=== PATIENT | female | born 2000 | race Caucasian/White ===

== ENCOUNTER 2023-02-18 10:15 | Emergency (ER) | payer OTHER, SELFPAY ==
[2023-02-18 10:17] VITALS: BP 116/85; PULSE 123; RESP 18; TEMP 37.1; O2SAT 98
[2023-02-18 10:48] LABS: Appearance Urine Cloudy (Clear); Bilirubin Urine Negative (Negative); Blood Urine Negative (Negative); Color Urine Yellow (Yellow); Glucose Urine UA Negative (Negative); Ketones Urine Trace mg/dL (Negative); Leukocyte Esterase Ur 2+ LEU/UL (Negative); Nitrate Urine Negative (Negative); Protein Urine Trace mg/dL (Negative); Specific Grav Ur 1.029 (1.001-1.035); pH Urine 7.5 (5.0-9.0)
[2023-02-18 11:07] LABS: Bacteria Urine 1+ /hpf; RBC Urine 0-2 /hpf (0-2); Squamous Epithelial Cell Urine Many /hpf (Few)
[2023-02-18 11:08] LABS: Add Urine Microscopic? YES
[2023-02-18 11:41] LABS: Hematocrit 42.7 % (37.0-47.0); Hemoglobin 14.5 g/dL (12.0-15.0); Mean Corpuscular Hemoglobin 29.9 pg (26-34); Mean Platelet Volume 10.5 fl (7.4-10.4); Platelet Count Result 263 k/mm3 (150-375); Red Blood Count 4.85 M/mm3 (4.2-5.4); Red Cell Distribution Width 12.1 % (11.5-14.5); White Blood Count 9.4 K/mm3 (4.5-10.0)
[2023-02-18 11:48] LABS: Alanine Aminotransferase 33 U/L (6-35); Albumin Level 4.7 g/dL (3.5-5.1); Alkaline Phosphatase 67 U/L (38-126); Anion Gap 9 mmol/L (8-16); Aspartate Amino Transferase 31 U/L (14-36); Bilirubin,Total 0.7 mg/dL (0.2-1.3); Blood Urea Nitrogen 16 mg/dL (7-17); Calcium 9.2 mg/dL (8.4-10.2); Carbon Dioxide 26 mmol/L (22-30); Chloride 102 mmol/L (98-107); Estimated CRCL calculation 99 ml/min; Estimated Glomerular Filt Rate > 60; Glucose 139 mg/dL (65-110); Lipase 39 U/L (23-300); Sodium 137 mmol/L (137-145)
[2023-02-18 12:12] VITALS: BP 118/68; PULSE 74; RESP 16; O2SAT 100
[2023-02-18 12:13] LABS: Band Neutrophils Percent 10 % (0-6); Lymphocytes Absolute Manual 0.18 K/mm3 (1.1-4.5); Lymphocytes Percent Manual 2 % (18-44); Monocytes Absolute Manual 0.28 K/mm3 (0.1-0.90); Monocytes Percent Manual 3 % (3-9); Neutrophils Absolute Manual 8.93 K/mm3 (1.7-7.2); Neutrophils Percent Manual 85 % (46-73); Platelet Estimate Adequate (Adequate); Schistocytes None Seen (NORMAL); Total Cells Counted 100
--- NOTE | 2023-02-18 12:33 | ED.GENADULT ---
HPI - General Adult General Chief complaint: Nausea/Vomiting/Diarrhea Stated complaint: n/v Time Seen by Provider: 02/18/23 11:49 History of Present Illness HPI narrative: 22-year-old female presented the ED for evaluation of nausea vomiting that started last night and persisted through approximately 9 AM this morning. Patient states that she believes only reason her emesis is stopped because she has not had anything to eat or drink. Patient denies any abdominal pain any pain with urination denies any associated diarrhea. Patient denies any current . Patient denies any significant past medical history. Related Data Allergies Allergy/AdvReac Type Severity Reaction Status Date / Time Penicillins Allergy Intermediate Rash Verified 02/18/23 10:20 Review of Systems Review of Systems: All systems reviewed & are unremarkable except as noted in HPI and below PMFSH Past Medical History Medical History Dysmenorrhea Family History Family History Grandparent Carcinoma of colon Ovarian cancer Social History Social History Smoking status: Never smoker Alcohol intake: never Substance use: never Substance use type: does not use Living arrangements: with family Additional occupation/education comments: Workers at [employer] Gender identity (if verbalized by the patient): Female Sexual Orientation (if Verbalized by the Patient): Straight or Heterosexual Spiritual care concerns: No Exam Narrative: APPEARANCE: Well appearing, no pain, no distress, well-nourished. HEAD: normocephalic, atraumatic. EYES: PERRLA/EOMI, conjunctivae clear. NOSE: Normal no drainage NECK: Supple. No adenopathy, no masses. RESPIRATORY: Airway patent, respirations nonlabored. Clear to auscultation bilaterally, no rales, rhonchi, wheezing. CARDIOVASCULAR: Regular rate and rhythm without murmurs rubs or gallops. ABDOMINAL: Soft, nontender, nondistended, normal bowel sounds MUSCULOSKELETAL: Moves all extremities. Strength/ROM intact, No edema, No calf tenderness. NEURO: Alert. Cranial nerves II through XII intact. Grossly intact SKIN: Warm, dry. Normal Color Course Course Emergency Course: 22-year-old female presented the ED for evaluation of persistent nausea and vomiting. Patient had no further emesis in the emergency department. Patient was afebrile with no leukocytosis. Patient's hemoglobin was 14.5. Patient's CMP had no significant abnormalities. UA showed no evidence of urinary tract infection. Patient did feel improved with treatment. Patient was treated with IV fluids and IV Zofran. Patient was updated on the results of her work-up and was encouraged to follow a clear liquid diet for the next few days. Patient was provided p.o. Zofran for nausea control. All questions and concerns were addressed and patient was comfortable with the plan for discharge and close follow-up. Vital Signs Vital signs: Vital Signs Temperature 98.8 F 02/18/23 10:17 Pulse Rate 123 H 02/18/23 10:17 Respiratory Rate 18 02/18/23 10:17 Blood Pressure 116/85 02/18/23 10:17 Pulse Oximetry 98 02/18/23 10:17 Oxygen Delivery Room Air 02/18/23 10:17 Temperature 98.0 F 02/18/23 14:28 Pulse Rate 104 H 02/18/23 14:03 Respiratory Rate 16 02/18/23 14:03 Blood Pressure 104/64 02/18/23 14:03 Pulse Oximetry 98 02/18/23 14:03 Oxygen Delivery Room Air 02/18/23 10:17 Medical Decision Making Differential Diagnosis Differential Diagnosis: Nausea and vomiting, gastroenteritis, urinary tract infection, food poisoning Vital Signs Vital Signs: Vital Signs Temperature 98.8 F 02/18/23 10:17 Pulse Rate 123 H 02/18/23 10:17 Respiratory Rate 18 02/18/23 10:17 Blood Pressure 116/85 02/18/23 10:17 Pulse Oximetry 98 02/18/23 10:17 Oxygen De
[2023-02-18] MEDS: ONDANSETRON INJ 4 MG/2 ML VIAL IV PUSH ×2 (12:40→14:22)
[2023-02-18] MEDS: SODIUM CHLORIDE 0.9% IV 1,000 ML 999 ML IV CONT (12:40)
[2023-02-18 13:00] VITALS: BP 106/78; PULSE 100; RESP 16; O2SAT 100
[2023-02-18 14:03] VITALS: BP 104/64; PULSE 104; RESP 16; O2SAT 98
[2023-02-18 14:28] VITALS: TEMP 36.7
== END 2023-02-18 14:30 | disposition home or self-care (01) ==
PROVIDERS: Emergency Provider Emergency Medicine; PCP Pediatrics
DX: R11.2 Nausea with vomiting, unspecified (principal)
CPT/HCPCS: 36415; 80053; 81001; 81025; 83690; 85025; 96361; 96365; 96375; 96376; 99284; J0131; J2405; J7030

== ENCOUNTER 2023-06-11 14:46 | Outpatient (CLI) | payer OTHER, SELFPAY ==
[2023-06-11 18:56] LABS: Free T4 Free Thyroxine Reflex 1.15 ng/dL (0.78-2.19)
[2023-06-11 19:51] LABS: Total Triiodothyronine (T3) 1.92 NG/ML (0.97-1.69)
[2023-06-17 02:05] LABS: Immunoglobulin A 181 mg/dL (47-310); TTG IGA AB <1.0 U/mL (<15.0)
== END 2023-06-11 14:47 | disposition home or self-care (01) ==
PROVIDERS: PCP Pediatrics; Visit Provider Nurse Practitioner
DX: R11.0 Nausea (principal); R10.13 Epigastric pain; K90.49 Malabsorption due to intolerance, not elsewhere classified
CPT/HCPCS: 36415; 82784; 84439; 84443; 84480; 86003; 86364

== ENCOUNTER 2023-06-22 00:54 | Day surgery (SDC) | payer OTHER, SELFPAY ==
[2023-06-22 11:54] VITALS: BP 115/83; PULSE 78; RESP 18; TEMP 36.6; O2SAT 100
[2023-06-22] MEDS: LACTATED RINGERS 1,000 ML 150 ML IV CONT (12:01)
--- NOTE | 2023-06-22 12:13 | P.PNAN_ITS ---
Anes - Initial Pre Proc Eval Procedure: Operation Date: 06/22/23 13:00 Proposed Procedures p Esophagogastroduodenoscopy - Brendan Arita MD Date/Time: 06/22/23 12:13 Surgeon: Brendan Arita MD Pre Op Diagnosis: Malabsorption due to intolerance, nausea, Patient Data Age: 22 Gender: F Height: 1.65 m Weight: 54.6 kg Last Vital Signs Temp 97.9 F 06/22/23 11:54 Pulse 78 06/22/23 11:54 Resp 18 06/22/23 11:54 BP 115/83 06/22/23 11:54 Pulse Ox 100 06/22/23 11:54 O2 Del Method Room Air 06/22/23 11:54 Allergies Allergy/AdvReac Type Severity Reaction Status Date / Time Penicillins Allergy Intermediate Rash Verified 06/22/23 11:52 Home Medications Medication Instructions Recorded Confirmed Type norethindrone 1.5 mg-ethinyl 1 tablet PO DAILY #84 tabs 02/10/23 06/15/23 Rx estradiol 30 mcg(21)/iron 75 mg(7) tablet (Junel FE 1.5/30 (28)) multivitamin 1 tablet PO DAILY 06/11/23 06/15/23 History omeprazole 20 mg capsule,delayed 20 mg PO DAILY #30 caps 06/11/23 06/15/23 Rx release Elderberry 50 mg PO DAILY 06/15/23 06/15/23 History ondansetron HCl 8 mg tablet 8 mg PO Q6-8H PRN Nausea And 06/15/23 06/15/23 History Vomiting Patient hx anesthesia problems: none Family hx anesthesia problems: none Results Review: All pre-operative results and documents have been reviewed as part of the pre- operative evaluation. [facility] Past Medical History Medical History (Updated 06/11/23 @ 14:40 by Krysten Rodriguez APRN) Abnormal weight loss Dysmenorrhea Early satiety Epigastric pain Intolerance, food Nausea Family History Family History Grandparent Carcinoma of colon Ovarian cancer Social History Social History Smoking status: Never smoker Alcohol intake: never Substance use: never Substance use type: does not use Living arrangements: with family Additional occupation/education comments: Workers [facility] [employer] Gender identity (if verbalized by the patient): Female Sexual Orientation (if Verbalized by the Patient): Straight or Heterosexual Spiritual care concerns: No Anes - Eval Final PreProcedure Day of Procedure 06/22/23 12:13 Patient weight: normal Heart: regular rate and rhythm Lungs: clear to auscultation Airway: Mallampati scale class II Neurological: alert and oriented Last oral intake: >/= 8 hours ASA classification: II Emergent: no Anesthetic plan: proceed Anesthesia type and monitoring: general GIVS and standard monitoring Results Review: All pre-operative results and documents have been reviewed as part of the pre- operative evaluation. Informed Consent: The patient's anesthetic plan and its attendant risks and benefits were discussed with the patient/family/POA. Questions were solicited and answers provided to the satisfaction of the patient/family/POA.
--- NOTE | 2023-06-22 12:24 | WPDHPUPDATE1 ---
History and Physical Update Update Date/Time: 06/22/23 12:24 History and Physical has been reviewed, including an updated exam of the patient. There are NO changes in the patient's condition. Risks, benefits, and alternatives have been discussed and questions answered. Patient agrees to proceed with procedure.
[2023-06-22 12:37] VITALS: BP 110/48; PULSE 83; RESP 20; O2SAT 100
[2023-06-22 12:47] VITALS: BP 111/70; PULSE 68; RESP 20; O2SAT 98
[2023-06-22 12:57] VITALS: BP 121/89; PULSE 72; RESP 20; O2SAT 99
== END 2023-06-22 13:03 | disposition home or self-care (01) ==
PROVIDERS: PCP Pediatrics; Visit Provider Internal Medicine Gastroenterology
PROC: 0DJ08ZZ Inspection of Upper Intestinal Tract, Via Natural or Artificial Opening Endoscopic (ICD-10-PCS; CPT 43235; principal; 2023-06-22 13:00)
DX: R11.0 Nausea (principal)
CPT/HCPCS: 43239; 88305; J2704; J7120

== ENCOUNTER 2023-11-27 14:42 | Outpatient (CLI) | payer OTHER, SELFPAY ==
[2023-11-27 16:02] LABS: Total Triiodothyronine (T3) 2.16 NG/ML (0.97-1.69)
[2023-11-27 16:32] LABS: Free T4 Free Thyroxine 0.95 ng/mL (0.78-2.19)
[2023-12-01 14:42] LABS: Thyroid Stimulating Immunoglob 117 % baseline (<140)
[2023-12-02 10:14] LABS: Thyrotropin Receptor Antibody 1.73 IU/L (<=2.00)
[2023-12-04 01:25] LABS: Thyroid Peroxidase Antibodies 88 IU/mL (<9)
== END 2023-11-27 14:43 | disposition home or self-care (01) ==
PROVIDERS: Visit Provider Internal Medicine
DX: R79.89 Other specified abnormal findings of blood chemistry (principal)
CPT/HCPCS: 36415; 83519; 84439; 84443; 84445; 84480; 86376

== ENCOUNTER 2024-04-08 13:19 | Outpatient (CLI) | payer OTHER, SELFPAY | END 2024-04-08 13:20 | disposition home or self-care (01) | LOC: ANHLAB 13:21 | PROVIDERS: Visit Provider Internal Medicine | DX: E03.8 Other specified hypothyroidism (principal) | CPT/HCPCS: 36415; 84439; 84443 ==

== ENCOUNTER 2024-06-02 11:41 | Outpatient (CLI) | payer OTHER, SELFPAY ==
--- NOTE | ~2024-06-02 | US_ITS ---
EXAMINATION: US thyroid DATE: 06/02/2024 11:58 INDICATION: Goiter. TECHNIQUE: Multiple ultrasound images of the thyroid were obtained. COMPARISON: None. FINDINGS: The right thyroid lobe measures 3.8 x 1.5 x 1.2 cm. The left thyroid lobe measures 4.0 x 1.4 x 1.3 c m. There is normal echotexture and echogenicity throughout the thyroid gland. No discrete nodules id entified. Normal vascular flow is present. IMPRESSION: 1. Normal thyroid. Reviewed, dictated and finalized at location A. IMPRESSION: 1. Normal thyroid.
== END 2024-06-02 11:42 | disposition home or self-care (01) ==
LOC: MICIMG 11:42
PROVIDERS: PCP Internal Medicine; Visit Provider Internal Medicine
DX: E04.9 Nontoxic goiter, unspecified (principal)
CPT/HCPCS: 76536

== ENCOUNTER 2024-09-09 12:07 | Outpatient (CLI) | payer OTHER, SELFPAY ==
[2024-09-09 13:27] LABS: Free T4 Free Thyroxine 1.01 ng/dL (0.76-1.46)
== END 2024-09-09 12:08 | disposition home or self-care (01) ==
LOC: CHSLAB 12:08
PROVIDERS: PCP Internal Medicine; Visit Provider Internal Medicine
DX: E03.9 Hypothyroidism, unspecified (principal)
CPT/HCPCS: 36415; 84439; 84443

== ENCOUNTER 2024-10-28 14:59 | Outpatient (CLI) | payer OTHER, SELFPAY ==
[2024-10-28 16:33] LABS: Free T3 2.81 pg/mL (2.18-3.98); Thyroid Stimulating Hormone 2.08 uIU/mL (0.36-3.74)
== END 2024-10-28 15:00 | disposition home or self-care (01) ==
LOC: CHSLAB 15:02
PROVIDERS: PCP Internal Medicine; Visit Provider Internal Medicine
DX: E03.9 Hypothyroidism, unspecified (principal)
CPT/HCPCS: 36415; 84443; 84481

== ENCOUNTER 2024-12-02 11:05 | Outpatient (CLI) | payer OTHER, SELFPAY ==
[2024-12-02 12:18] LABS: Free T4 Free Thyroxine 0.97 ng/dL (0.76-1.46); Thyroid Stimulating Hormone 3.81 uIU/mL (0.36-3.74)
== END 2024-12-02 11:06 | disposition home or self-care (01) ==
LOC: CHSLAB 11:06
PROVIDERS: Visit Provider Internal Medicine
DX: E03.9 Hypothyroidism, unspecified (principal)
CPT/HCPCS: 36415; 84439; 84443

== ENCOUNTER 2025-05-03 10:42 | Outpatient (CLI) | payer OTHER, SELFPAY ==
[2025-05-03 12:02] LABS: Free T4 Free Thyroxine 1.30 ng/dL (0.78-2.19)
[2025-05-03 12:17] LABS: Thyroid Stimulating Hormone 1.070 uIU/mL (0.465-4.680)
== END 2025-05-03 10:43 | disposition home or self-care (01) ==
PROVIDERS: Visit Provider Internal Medicine
DX: E03.9 Hypothyroidism, unspecified (principal)
CPT/HCPCS: 36415; 84439; 84443